=== PATIENT | female | born 1985 | race Caucasian/White ===

== ENCOUNTER 2019-10-21 10:48 | Outpatient (CLI) | payer OTHER, SELFPAY ==
[2019-10-21 11:43] LABS: Anion Gap 16.8 (5-19); Blood Urea Nitrogen 10 mg/dL (6-20); C Reactive Protein 20.6 mg/L (0.0-4.9); Calcium 10.2 mg/Dl (8.6-10.0); Carbon Dioxide 30 mmol/L (22-29); Chloride 91 mmol/L (98-107); Glomerular Filtration Rate 81.2 mL/min (90-130); Glucose 122 mg/dL (74-109); Sodium 135 mmol/L (136-145)
[2019-10-21 11:55] LABS: Potassium 2.8 mmol/L (3.5-5.1)
[2019-10-21 12:09] LABS: Erythrocyte Sedimentation Rate 46 mm/hr (0-15)
== END 2019-10-21 10:49 | disposition home or self-care (01) ==
PROVIDERS: Family Provider Family Medicine; PCP Family Medicine; Visit Provider Family Medicine
DX: E87.6 Hypokalemia (principal)
CPT/HCPCS: 36415; 80048; 84244; 85651; 86140

== ENCOUNTER 2019-10-21 10:55 | Outpatient (CLI) | payer OTHER, SELFPAY | END 2019-10-21 10:56 | disposition home or self-care (01) | LOC: LAB 10:58 | PROVIDERS: Family Provider Family Medicine; PCP Family Medicine; Visit Provider Internal Medicine | DX: M35.01 Sjogren syndrome with keratoconjunctivitis (principal) ==

== ENCOUNTER 2019-10-27 13:49 | Outpatient (CLI) | payer OTHER, SELFPAY ==
[2019-10-27 14:30] LABS: Anion Gap 16.2 (5-19); Blood Urea Nitrogen 14 mg/dL (6-20); Calcium 10.5 mg/Dl (8.6-10.0); Carbon Dioxide 32 mmol/L (22-29); Chloride 91 mmol/L (98-107); Glomerular Filtration Rate 81.2 mL/min (90-130); Glucose 169 mg/dL (74-109); Potassium 3.2 mmol/L (3.5-5.1); Sodium 136 mmol/L (136-145)
== END 2019-10-27 13:50 | disposition home or self-care (01) ==
LOC: LAB 13:53
PROVIDERS: Family Provider Family Medicine; PCP Family Medicine; Visit Provider Internal Medicine Cardiovascular Disease
DX: E87.6 Hypokalemia (principal)
CPT/HCPCS: 36415; 80048

== ENCOUNTER 2019-11-07 15:59 | Outpatient (CLI) | payer OTHER, BC, SELFPAY ==
[2019-11-07 17:05] LABS: Anion Gap 19.2 (5-19); Blood Urea Nitrogen 12 mg/dL (6-20); Calcium 9.6 mg/dL (8.5-10.5); Carbon Dioxide 27 mmol/L (22-29); Chloride 93 mmol/L (98-107); Glomerular Filtration Rate 81.2 mL/min (90-130); Glucose 133 mg/dL (74-109); Osmolality Calculated 280 mOsm/kg (285-295); Potassium 3.2 mmol/L (3.5-5.1); Sodium 136 mmol/L (136-145)
== END 2019-11-07 16:00 | disposition home or self-care (01) ==
LOC: LAB 16:04
PROVIDERS: Family Provider Family Medicine; PCP Family Medicine
DX: E87.6 Hypokalemia (principal)
CPT/HCPCS: 36415; 80048

== ENCOUNTER 2019-11-09 13:28 | Outpatient (CLI) | payer BC, OTHER, SELFPAY ==
[2019-11-09 14:03] LABS: Magnesium 2.3 mg/dL (1.7-2.3)
== END 2019-11-09 13:29 | disposition home or self-care (01) ==
PROVIDERS: Family Provider Family Medicine; PCP Family Medicine; Visit Provider Internal Medicine
DX: E87.6 Hypokalemia (principal)
CPT/HCPCS: 83735

== ENCOUNTER 2019-11-26 10:48 | Outpatient (CLI) | payer BC, SELFPAY ==
[2019-11-26 11:19] LABS: Anion Gap 16.9 (5-19); Blood Urea Nitrogen 9 mg/dL (6-20); Calcium 9.6 mg/dL (8.5-10.5); Carbon Dioxide 31 mmol/L (22-29); Chloride 92 mmol/L (98-107); Glomerular Filtration Rate 81.2 mL/min (90-130); Glucose 117 mg/dL (65-115); Osmolality Calculated 281 mOsm/kg (285-295); Potassium 2.9 mmol/L (3.5-5.1); Sodium 137 mmol/L (136-145)
== END 2019-11-26 10:49 | disposition home or self-care (01) ==
LOC: LAB 10:53
PROVIDERS: Family Provider Family Medicine; PCP Family Medicine; Visit Provider Internal Medicine Cardiovascular Disease
DX: E87.6 Hypokalemia (principal)
CPT/HCPCS: 36415; 80048

== ENCOUNTER 2019-12-07 13:27 | Outpatient (CLI) | payer BC, SELFPAY ==
[2019-12-07 14:03] LABS: Anion Gap 16.2 (5-19); Blood Urea Nitrogen 11 mg/dL (6-20); Calcium 10.2 mg/dL (8.5-10.5); Carbon Dioxide 28 mmol/L (22-29); Chloride 95 mmol/L (98-107); Glomerular Filtration Rate 70.8 mL/min (90-130); Glucose 132 mg/dL (65-115); Osmolality Calculated 280 mOsm/kg (285-295); Potassium 3.2 mmol/L (3.5-5.1); Sodium 136 mmol/L (136-145)
== END 2019-12-07 13:28 | disposition home or self-care (01) ==
PROVIDERS: Family Provider Family Medicine; PCP Family Medicine; Visit Provider Internal Medicine
DX: E87.6 Hypokalemia (principal)
CPT/HCPCS: 36415; 80048

== ENCOUNTER → 2019-12-15 13:20 | Outpatient (BNVA) | payer BC, SELFPAY | PROVIDERS: Family Provider Family Medicine; PCP Family Medicine; Visit Provider Internal Medicine | DX: E87.6 Hypokalemia (principal) | CPT/HCPCS: 84132 ==

== ENCOUNTER 2020-04-29 12:20 | Emergency (ER) | payer BC, SELFPAY ==
[2020-04-29] VITALS (8 sets, daily range): BP systolic 103–125; BP diastolic 52–77; PULSE 70–105; RESP 16–18; TEMP 36.7–37.2; O2SAT 96–100; BMI 34.0
--- NOTE | 2020-04-29 12:28 | XRR_ITS ---
PROCEDURE INFORMATION: Exam: XR Chest, 1 View Exam date and time: 04/29/2020 1:51 PM Age: 35 years old Clinical indication: Chest pain; Additional info: Cp TECHNIQUE: Imaging protocol: XR of the chest Views: 1 view. COMPARISON: CR Chest 1 [place] [id number] 06/20/2019 11:36 AM FINDINGS: Lungs: Unremarkable. No consolidation. Pleural space: Unremarkable. No pleural effusion. No pneumothorax. Heart/Mediastinum: Unremarkable. No cardiomegaly. Bones/joints: Unremarkable. XR/XR chest 1V portable [id number] IMPRESSION: No acute findings.
--- NOTE | 2020-04-29 12:29 | ECG_ITS ---
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 Measurements Intervals [place] Rate: 83 P: 19 [place]: 151 QRS: 3 QRSD: 93 T: 17 QT: 370 QTc: 437 Interpretive Statements SINUS RHYTHM MINIMAL VOLTAGE CRITERIA FOR LVH, CONSIDER NORMAL VARIANT [MEETS CRITERIA IN ONE OF: R(aVL), S(V1), R(V5), R(V5/V6)+S(V1)] NONSPECIFIC ST & T-WAVE ABNORMALITY Compared to ECG 08/19/2019 18:49:57 T-wave abnormality now present Myocardial infarct finding no longer present Electronically Signed On 04-29-2020 22:03:28 CDT by Valerie Campbell M.D. [id number] f
--- NOTE | 2020-04-29 12:30 | ED_ITS ---
HPI - Chest Pain General: Chief Complaint: Chest Pain Stated Complaint: cp Time Seen by Provider: 04/29/20 12:22 Source: patient and family History of Present Illness: HPI narrative: 35-year-old female with history of autoimmune disease, cardiomyopathy after and SVT presents with chest pain for 4 days. She states the pain is been there constantly but it was not getting better so she decided to come in. Complains of a heaviness in the center of her chest that is nonradiating and associated with shortness of breath nausea and vomiting. She states she has vomited multiple times but bowels are working normally. Denies any fever cough. Her dad was hospitalized and transferred to [place] yesterday with [place] and she has been around him. She tells me she has lost her sense of taste and smell and taste metallic in her mouth. nothing makes the pain better or worse Timing of current episode: constant Associated symptoms: Reports dyspnea, nausea and vomiting; Deny abdominal pain or fever(s) Review of Systems General: Reports: 10 or more systems reviewed and unremarkable except in HPI and below Const: Denies: fever(s) or chills Eyes: Denies: change in vision ENMT: Denies: throat pain Card: Reports: chest pain Resp: Reports: dyspnea; Denies: productive cough or non-productive cough GI: Reports: nausea and vomiting; Denies: abdominal pain or change in bowel habits : Denies: difficulty voiding Musc: Denies: muscle weakness Skin/Breast: Reports: rash Neuro: Denies: headache(s) Psych: Denies: hopelessness or suicidal ideation Endo: Denies: polyuria Garry/Lymph: Denies: easy bruising or easy bleeding All/Imm: Denies: urticaria PFSH ED PFSH: Medical History (Updated 04/29/20 @ 16:04 by Dejah Long MD) Cardiomyopathy Hypokalemia SVT (supraventricular tachycardia) Family History Mother Diabetes Brother Hypertension Father Hypertension Diabetes Heart problem Aneurysm Stroke Unknown Cancer Great Aunt X2; Breast Social History Smoking and tobacco status: never smoked Physical Exam Const: COMMON NORMALS: no acute distress, patient oriented x3, alert and well nourished HENMT: COMMON NORMALS: normocephalic and Normal external nose present HEAD & SCALP: normocephalic NOSE: Normal external nose present MOUTH: no trismus Eye: COMMON NORMALS: EOMs intact bilaterally and conjunctivae normal CONJUNCTIVA: Yes conjunctivae normal Neck/C-Spine: COMMON NORMALS: full ROM, no lymphadenopathy and supple CERVICAL SPINE: Yes cervical ROM normal Lymph: LYMPHATIC: no lymphadenopathy noted Resp: COMMON NORMALS: normal respiratory effort, No retractions, No use of accessory muscles and clear to auscultation bilaterally EFFORT & INSPECTION: Yes able to speak in complete sentences AUSCULTATION: clear to auscultation bilaterally Cardio: COMMON NORMALS: regular rate and regular rhythm RATE: regular rate RHYTHM: regular rhythm GI: COMMON NORMALS: Normal to inspection, nondistended, normoactive bowel sounds present, Soft to palpation, non-tender and no masses INSPECTION: Yes normal to inspection AUSCULTATION: Yes normoactive bowel sounds PALPATION: Yes Soft to palpation, No Guarding due to palpation present (GI) and No Rigid due to palpation Back/Pelvis: OTHER: Normal range of motion Extremity: GENERAL: Yes normal exam except as noted Neuro: COMMON NORMALS: patient oriented x3 and CN's II-XII intact bilaterally SENSORIUM/ORIENTATION: Yes alert SPEECH: speech normal Psych: COMMON NORMALS: mental status grossly normal Skin: COMMON NORMALS: no rashes or lesions noted GENERAL SKIN EXAM: no rashes or lesions noted Course Vital Signs: Vital signs: Vital Signs Temperature 98.1 F 04/29/20 12:32 Pulse Rate 74 04/29/20 16:04 Respiratory Rate 16 04/29/20 16:04 Blood Pressure 103/52 04/29/20 16:04 Pulse Oximetry 99 04/29/20 16:04 MDM - Chest Pain MDM Narrative: Medical decision making narrative: First and second troponin both less than 10. Nitro did not help patient's pain and bottomed her blood pressure out. Gave her 15 mg of Toradol IV with no change in her pain. Went over her test results and explained that she was not having a heart attack and did not necessarily warrant any admission to the hospital. She tells me that she is really worried about having COVID with her autoimmune disease because her father is COVID positive in the hospital in [place]. She was swabbed here in the ER but that test will not come back until tomorrow and I further explained that even if that test is negative since she is been in contact with her father she could still become positive at a later time. I did talk with the hospitalist who asked me to relay to the patient that she could admit her for observation status but she likely would be on the hook for the bill because most insurance companies are pain for observation when criteria is not met. I did go back and tell the patient that I had this conversation with hospitalist and patient elects to go home at this time. I asked the patient to let me know before she left if she changed her mind. Her and her mother both thanked me. Lab Data: Attestation: I reviewed the patient's lab results. Labs: Lab Results 04/29/20 04/29/20 04/29/20 Range/Units 12:55 12:55 12:55 WBC 3.7 L (4.0-10.0) 10^3/ uL RBC 4.92 (4.1-5.3) 10^6/u L Hgb 12.7 (11.5-15.3) g/dL Hct 40.3 (37.0-47.0) % MCV 81.9 (81-99) fL MCH 25.8 L (28.0-34.0) pg MCHC 31.5 (30.0-36.0) g/dL RDW 16.1 H (12.1-15.1) % Plt Count 314 (130-400) 10^3/c mm MPV 10.0 (7.4-10.4) fL Neut % (Auto) 68.9 % Lymph % (Auto) 21.8 % [place] % (Auto) 8.4 % Eos % (Auto) 0.3 % Baso % (Auto) 0.3 % Neut # (Auto) 2.53 (1.8-7.7) 10^3/u L Lymph # (Auto) 0.8 (0.8-4.8) 10^3/u L [place] # (Auto) 0.3 (0.2-0.9) 10^3/u L Eos # (Auto) 0.0 (0.0-0.8) 10^3/u L Baso # (Auto) 0.0 (0.0-0.1) 10^3/u L Nucleated RBC % (a uto) 0 % Nucleated RBCs # 0.0 /100WBC D-Dimer 0.36 (0-0.59) ug/mIFE U Sodium 134 L (136-145) mmol/L Potassium 2.9 L (3.5-5.1) mmol/L Chloride 87 L (98-107) mmol/L Carbon Dioxide 29 (22-29) mmol/L Anion Gap 20.9 H (5-19) BUN 14 (6-20) mg/dL Creatinine 1.0 H (0.5-0.9) mg/dL GFR Calculation 62.4 L (90-130) mL/min Glucose 136 H (65-115) mg/dL Calculated Osmolal ity 276 L (285-295) mOsm/k g Calcium 9.3 (8.5-10.5) mg/dL Total Bilirubin 0.2 (0.15-1.2) mg/dL AST 18 (0-32) U/L ALT 8 (0-33) U/L Alkaline Phosphata se 77 (35-105) IU/L Troponin T Baselin e (0-10) ng/L Troponin T 120 Min [place] (0-10) ng/L Delta Troponin T (0-10) ABS# NT-Pro-B Natriuret Pep 20 (0-125) pg/mL Total Protein 8.2 (6.6-8.7) g/dL Albumin 4.8 (3.5-5.2) g/dL Globulin 3.4 (1.3-4.6) g/dL TSH (0.27-4.20) uIU/ mL Digoxin (0.6-1.2) ng/mL 04/29/20 04/29/20 04/29/20 Range/Units 12:55 12:55 14:36 WBC (4.0-10.0) 10^3/ uL RBC (4.1-5.3) 10^6/u L Hgb (11.5-15.3) g/dL Hct (37.0-47.0) % MCV (81-99) fL MCH (28.0-34.0) pg MCHC (30.0-36.0) g/dL RDW (12.1-15.1) % Plt Count (130-400) 10^3/c mm MPV (7.4-10.4) fL Neut % (Auto) % Lymph % (Auto) % [place] % (Auto) % Eos % (Auto) % Baso % (Auto) % Neut # (Auto) (1.8-7.7) 10^3/u L Lymph # (Auto) (0.8-4.8) 10^3/u L [place] # (Auto) (0.2-0.9) 10^3/u L Eos # (Auto) (0.0-0.8) 10^3/u L Baso # (Auto) (0.0-0.1) 10^3/u L Nucleated RBC % (a uto) % Nucleated RBCs # /100WBC D-Dimer (0-0.59) ug/mIFE U Sodium (136-145) mmol/L Potassium (3.5-5.1) mmol/L Chloride (98-107) mmol/L Carbon Dioxide (22-29) mmol/L Anion Gap (5-19) BUN (6-20) mg/dL Creatinine (0.5-0.9) mg/dL GFR Calculation (90-130) mL/min Glucose (65-115) mg/dL Calculated Osmolal ity (285-295) mOsm/k g Calcium (8.5-10.5) mg/dL Total Bilirubin (0.15-1.2) mg/dL AST (0-32) U/L ALT (0-33) U/L Alkaline Phosphata se (35-105) IU/L Troponin T Baselin e 6 (0-10) ng/L Troponin T 120 Min [place] 7.06 (0-10) ng/L Delta Troponin T 1.06 (0-10) ABS# NT-Pro-B Natriuret Pep (0-125) pg/mL Total Protein (6.6-8.7) g/dL Albumin (3.5-5.2) g/dL Globulin (1.3-4.6) g/dL TSH 1.20 (0.27-4.20) uIU/ mL Digoxin 0.7 (0.6-1.2) ng/mL Imaging Data^: CXR: My impression: NAD EKG Data^: EKG 1: Attestation: I personally reviewed and interpreted this EKG as follows: EKG interpretation date: 04/29/20 EKG interpretation time: 12:39 Interpretation: Sinus rhythm rate [address] changes with baseline artifact and wandering baseline. Compared to EKG 08/19/2019 essentially unchanged. Discharge Plan Discharge Patient Disposition: Home, Self-Care Clinical Impression: H/O Sjogren's disease Chest pain Qualifiers: Chest pain type: unspecified Qualified Code(s): R07.9 - Chest pain, unspecified Condition: Stable Prescriptions: No Action cholecalciferol (vitamin D3) 50 mcg (2,000 unit) capsule 50 mcg PO DAILY RF: 0 spironolactone 25 mg tablet 100 mg PO BID RF: 0 duloxetine [Cymbalta] 30 mg capsule,delayed release(DR/EC) 60 mg PO DAILY RF: 0 clobetasol 0.025 % cream 1 applic TOPICAL BID PRN (Reason: unknown) RF: 0 tramadol 50 mg tablet 50 mg PO Q6H PRN (Reason: Pain) RF: 0 sulfasalazine 500 mg tablet 1,500 mg PO BID RF: 0 magnesium oxide 400 mg magnesium tablet 400 mg PO DAILY RF: 0 folic acid 400 mcg tablet 800 mcg PO DAILY RF: 0 omeprazole 20 mg capsule,delayed release(DR/EC) 20 mg PO DAILY RF: 0 citalopram [Celexa] 40 mg tablet 40 mg PO DAILY RF: 0 levothyroxine 75 mcg capsule 75 mcg PO DAILY RF: 0 sumatriptan succinate [Imitrex] 100 mg tablet 100 mg PO DIRECTED PRN (Reason: Headache) RF: 0 aspirin [Adult Low Dose Aspirin] 81 mg tablet,delayed release (DR/EC) 81 mg PO DAILY RF: 0 carisoprodol [Soma] 350 mg tablet 350 mg PO TID RF: 0 cetirizine 10 mg capsule 10 mg PO DAILY RF: 0 melatonin 10 mg capsule 15 mg PO BEDTIME PRN (Reason: Sleep) RF: 0 alprazolam [Xanax] 0.25 mg tablet 0.25 mg PO BID PRN (Reason: unknown) RF: 0 indomethacin 50 mg capsule 50 mg PO PRN PRN (Reason: unknown) RF: 0 digoxin 125 mcg (0.125 mg) tablet 125 mcg PO DAILY 90 Days Qty: 90 RF: 3 furosemide 40 mg tablet 40 mg PO BID PRN (Reason: weight gain) 30 Days Qty: 90 RF: 6 metolazone 2.5 mg Tablet 2.5 mg PO BID PRN (Reason: Edema) RF: 0 pilocarpine HCl 5 mg tablet 5 mg PO TID PRN (Reason: unknown) RF: 0 hydroxychloroquine 200 mg tablet 200 mg PO DAILY RF: 0 metoprolol succinate 25 mg tablet extended release 24 hr See Rx Instructions .ROUTE .COMPLEX RF: 0 Referrals: Nabor Nicholson MD [Primary Care Provider] - Patient Instructions: Chest Pain (ED) Activity Restrictions/Additional Instructions: return to the ER immediately if worse or you think you have any emergent or concerning symptoms we are happy to reevaluate you. Coding Level of Care Code ED Strategic Partnership Representative for Gokul Fwd Exam Comprehensive
[2020-04-29] MEDS: nitroglycerin 0.4 mg sublingual Tablet SUBLINGUAL (12:55)
[2020-04-29] MEDS: sodium chloride 0.9% 1,000 ML 999 ML IV (12:58)
[2020-04-29] MEDS: aspirin 81 mg Chew Tablet 324 MG PO (12:58)
[2020-04-29] MEDS: ondansetron 2 mg/ML SDV 2 mL 4 MG IVP (12:58)
[2020-04-29 13:04] LABS: Basophils % 0.3 %; Eosinophils % 0.3 %; Hematocrit 40.3 % (37.0-47.0); Hemoglobin 12.7 g/dL (11.5-15.3); Lymphocytes # 0.8 10^3/uL (0.8-4.8); Lymphocytes % 21.8 %; Mean Corpuscular HGB Conc 31.5 g/dL (30.0-36.0); Mean Corpuscular Hemoglobin 25.8 pg (28.0-34.0); Mean Corpuscular Volume 81.9 fL (81-99); Monocytes # 0.3 10^3/uL (0.2-0.9); Monocytes % 8.4 %; Neutrophils # 2.53 10^3/uL (1.8-7.7); Neutrophils % 68.9 %; Nucleated Red Blood Cells % 0 %; Platelet Count 314 10^3/cmm (130-400); Red Blood Count 4.92 10^6/uL (4.1-5.3); Red Cell Distribution Width 16.1 % (12.1-15.1); White Blood Count 3.7 10^3/uL (4.0-10.0)
[2020-04-29 13:16] LABS: D Dimer 0.36 ug/mIFEU (0-0.59)
[2020-04-29] MEDS: acetaminophen 325 mg Tablet 650 MG PO (13:23)
[2020-04-29 13:25] LABS: Troponin(5th) Baseline 6 ng/L (0-10)
[2020-04-29 13:32] LABS: Alanine Aminotransferase 8 U/L (0-33); Albumin Level 4.8 g/dL (3.5-5.2); Alkaline Phosphatase 77 IU/L (35-105); Anion Gap 20.9 (5-19); Aspartate Amino Transferase 18 U/L (0-32); Blood Urea Nitrogen 14 mg/dL (6-20); Calcium 9.3 mg/dL (8.5-10.5); Carbon Dioxide 29 mmol/L (22-29); Chloride 87 mmol/L (98-107); Globulin 3.4 g/dL (1.3-4.6); Glomerular Filtration Rate 62.4 mL/min (90-130); Glucose 136 mg/dL (65-115); NT Pro B Type Natriuretic Pept 20 pg/mL (0-125); Osmolality Calculated 276 mOsm/kg (285-295); Sodium 134 mmol/L (136-145); Total Bilirubin 0.2 mg/dL (0.15-1.2); Total Protein 8.2 g/dL (6.6-8.7)
[2020-04-29 13:41] LABS: Potassium 2.9 mmol/L (3.5-5.1)
[2020-04-29] MEDS: potassium chloride ER 10 mEq Tablet 40 MEQ PO (13:49)
[2020-04-29] MEDS: ketorolac 30 mg/mL INJ 15 MG IVP (14:01)
[2020-04-29 14:21] LABS: Digoxin 0.7 ng/mL (0.6-1.2)
--- NOTE | 2020-04-29 14:29 | ECG_ITS ---
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 Measurements Intervals [place] Rate: 91 P: 54 SD: 134 QRS: -3 QRSD: 96 T: 17 QT: 359 QTc: 443 Interpretive Statements SINUS RHYTHM MINIMAL VOLTAGE CRITERIA FOR LVH, CONSIDER NORMAL VARIANT [MEETS CRITERIA IN ONE OF: R(aVL), S(V1), R(V5), R(V5/V6)+S(V1)] NONSPECIFIC ST & T-WAVE ABNORMALITY Compared to ECG 04/29/2020 12:46:47 No significant changes Electronically Signed On 04-29-2020 22:06:25 CDT by Valerie Campbell M.D. [email or web address] [email or web address].[email or web address]/store/[id number]
[2020-04-29 15:24] LABS: Troponin 5 2HR 7.06 ng/L (0-10); Troponin 5 2HR Delta 1.06 ABS# (0-10)
[2020-04-30 15:46] LABS: Coronavirus Lab Test PTC DETECTED
== END 2020-04-29 16:23 | disposition home or self-care (01) ==
PROVIDERS: Emergency Provider Emergency Medicine; PCP Family Medicine
DX: M35.00 Sjogren syndrome, unspecified (principal); R07.9 Chest pain, unspecified; Z79.82 Long term (current) use of aspirin; U07.1 COVID-19
CPT/HCPCS: 12345; 71045; 80053; 80162; 83880; 84443; 84484; 85025; 85378; 87635; 93005; 96361; 96374; 96375; 99283; 99284; J1885; J2405; J7030

== ENCOUNTER 2020-10-17 15:32 | Outpatient (CLI) | payer OTHER, SELFPAY ==
--- NOTE | 2020-10-17 15:45 | USCV_ITS ---
Esme Reid Age: 35 Gender: F : 1985 Exam Date: 10/17/2020 16:02 Ordering Phys: Valerie Campbell MD ([email or web address]) Technologist: Maynor Franco Exam Location: [facility] [place] Indication: peripartum cardiomyopathy BP: 147 / 88 HR: 81 Rhythm: Sinus Technical Quality: Good MEASUREMENTS (Male / Female) Normal Values 2D ECHO LV Diastolic Diameter PLAX 3.9 cm 4.2 - 5.9 / 3.9 - 5.3 cm LV Systolic Diameter PLAX 2.9 cm IVS Diastolic Thickness 0.7 cm 0.6 - 1.0 / 0.6 - 0.9 cm IVS Systolic Thickness 1.3 cm LVPW Diastolic Thickness 1.2 cm 0.6 - 1.0 / 0.6 - 0.9 cm LVPW Systolic Thickness 1.6 cm LVOT Diameter 2.0 cm LV Ejection Fraction 2D Teich 53.7 % LV Ejection Fraction MOD 2C 57.9 % LV Ejection Fraction 2C AL 56.1 % LA Diameter 3.1 cm LA Width 3.3 cm LA Height 4.0 cm RA Width 2.5 cm RA Height 3.7 cm Aorta at Sinotubular Diameter 2.5 cm M-MODE LV Diastolic Diameter MM 4.2 cm 4.2 - 5.9 / 3.9 - 5.3 cm LV Systolic Diameter MM 2.4 cm LV Ejection Fraction MM Teich 73.6 % IVS Diastolic Thickness MM 0.9 cm 0.6 - 1.0 / 0.6 - 0.9 cm IVS Systolic Thickness MM 1.1 cm LVPW Diastolic Thickness MM 1.1 cm 0.6 - 1.0 / 0.6 - 0.9 cm LVPW Systolic Thickness MM 1.8 cm Aortic Annulus Diameter 2.7 cm LA Ao Ratio MM 1.1 MV E Point Septal Separation 1.8 cm DOPPLER AV Peak Velocity 125.0 cm/s LVOT Peak Velocity 118.0 cm/s AV Area Cont Eq vti 2.8 cm squared AV Area Cont Eq pk 2.9 cm squared MV Area PHT 3.5 cm squared Mitral E to A Ratio 0.9 MV E' Velocity 52.5 cm/s Mitral E to MV E' Ratio 6.8 Mitral E to LV E' Lateral Ratio 6.5 Mitral E to LV E' Septal Ratio 7.1 TR Peak Velocity 104.0 cm/s TR Peak Gradient 4.3 mmHg TV Peak E Velocity 105.7 cm/s Right Atrial Pressure 3.0 mmHg Pulmonary Artery Systolic Pressu 7.3 mmHg PV Peak Velocity 67.0 cm/s RV Acceleration Time 0.1 s RV Ejection Time 0.3 s RV AcT/ET 0.4 FINDINGS Left Ventricle Normal left ventricular cavity size. Normal left ventricular systolic function. No regional wall motion abnormalities. Left ventricular ejection fraction is estimated at 65 %. Normal diastolic function. Right Ventricle The right ventricle is normal in size and function. Right Atrium The right atrium is normal in size. Left Atrium The left atrium is normal in size. Mitral Valve Structurally normal mitral valve without significant stenosis or prolapse. There is no mitral regurgitation. Aortic Valve Structurally normal aortic valve without significant sclerosis or stenosis. There is no aortic regurgitation. Tricuspid Valve Structurally normal tricuspid valve without significant stenosis or regurgitation. Pulmonary artery systolic pressure is normal. Pulmonic Valve Structurally normal pulmonic valve without significant stenosis. There is no pulmonic regurgitation. Pericardium Normal pericardium without effusion. Aorta Normal ascending aorta dimension. CONCLUSIONS 1-Normal left ventricular cavity size. Normal left ventricular systolic function. No regional wall motion abnormalities. Left ventricular ejection fraction is estimated at 65 %. Normal diastolic function. 2-There is no pericardial effusion. 3-No significant valve abnormalities. 4-Pulmonary artery systolic pressure is within normal limits. 5-Right atrial pressure is around 5 mm of mercury. 6-There are no prior echocardiogram studies to compare. Valerie Campbell MD (Electronically Signed) Final Date: 17 October 2020 19:10 S
== END 2020-10-17 15:33 | disposition home or self-care (01) ==
PROVIDERS: PCP Family Medicine; Visit Provider Internal Medicine Cardiovascular Disease
DX: O90.3 Peripartum cardiomyopathy (principal)
CPT/HCPCS: 87635; 93306

== ENCOUNTER 2020-10-22 09:09 | Outpatient (CLI) | payer OTHER, SELFPAY ==
--- NOTE | 2020-10-22 14:18 | PFTS_ITS ---
Date of Study:10/22/20 Date of Dictation: MECHANICS: Forced vital capacity (FVC) is normal. Forced expiratory volume in one second (FEV1) is normal. FEV1/FVC is normal. FLOW VOLUME LOOP: Normal. LUNG VOLUMES: Total lung capacity (TLC) is normal. Residual volume (RV) is increased. DIFFUSING CAPACITY FOR CARBON MONOXIDE: Normal. INTERPRETATION: The prebronchodilator spirometry is consistent with moderate obstruction. The postbronchodilator spirometry is completely normal. There is a significant postbronchodilator response. Lung volumes are consistent with mild air trapping. Gas exchange (DLCO) is normal. The pulmonary function test is very suggestive of reversible obstructive airways disease. MTDD
== END 2020-10-22 09:10 | disposition home or self-care (01) ==
LOC: RT 09:19
PROVIDERS: PCP Family Medicine; Visit Provider Internal Medicine
DX: I50.9 Heart failure, unspecified (principal); R42 Dizziness and giddiness; R55 Syncope and collapse
CPT/HCPCS: 94060; 94726; 94729; J7611

== ENCOUNTER → 2021-01-01 09:28 | Outpatient (BNVA) | payer OTHER, SELFPAY | PROVIDERS: PCP Family Medicine; Referring Provider Family Medicine; Visit Provider Specialist | DX: G56.03 Carpal tunnel syndrome, bilateral upper limbs (principal); R20.0 Anesthesia of skin; R20.2 Paresthesia of skin | CPT/HCPCS: 95910 ==

== ENCOUNTER 2021-01-23 15:03 | Outpatient (CLI) | payer OTHER, SELFPAY ==
--- NOTE | 2021-01-23 15:30 | MM_ITS ---
WS: [id number] SCREENING DIGITAL MAMMOGRAM WITH CAD HISTORY: M32.9 - Systemic lupus erythematosus, unspecified COMPARISON: None available. Bilateral CC and MLO views submitted. Computer aided detection analyzed. Breast composition: There are scattered areas of fibroglandular density. No suspicious masses, microc alcifications or architectural distortion. MM/[place] [id number] IMPRESSION: BI-RADS: 1-Negative FOLLOW UP: 1 Year Follow-up
== END 2021-01-23 15:04 | disposition home or self-care (01) ==
LOC: RADSHAW 15:08
PROVIDERS: PCP Family Medicine; Visit Provider Obstetrics & Gynecology
DX: Z12.31 Encounter for screening mammogram for malignant neoplasm of breast (principal)
CPT/HCPCS: 77067

== ENCOUNTER 2021-01-29 11:01 | Outpatient (CLI) | payer OTHER, SELFPAY ==
--- NOTE | 2021-01-29 11:00 | US_ITS ---
WS: [id number] ULTRASOUND PELVIS TECHNIQUE: Transvaginal. CLINICAL INFORMATION: N93.9 - Abnormal uterine and vaginal bleeding, unspecified LMP: 01/21 : No. COMPARISON: None. FINDINGS: Uterus Orientation: Anteverted. Size: 6.1 x 3.1 x 4.5 Masses: None. Cervix: Normal. Endometrium: Normal. Endometrium thickness: 1.3 cm. Adnexa: Simple right ovarian cyst measuring 1.7 x 1.0 CM. Left ovarian cyst with some internal debris measuring 2.7 x 1.4 cm consistent with hemorrhagic cyst. Right ovary size: 2.8 x 2.9 x 2.3 cm. Left ovary size: 3.7 x 1.4 x 2.7 cm. Free fluid: Trace Other findings: None. US/US transvaginal [id number] IMPRESSION: 1. Normal uterus with thickened endometrium measuring 13 mm normal for patient this age. 2. Simple right ovarian cyst measuring 1.7 x 1.0 CM. 3. Left ovarian cyst with some internal debris measuring 2.7 x 1.4 cm consiste nt with hemorrhagic cyst. 4. Trace free fluid in the cul-de-sac.
== END 2021-01-29 11:02 | disposition home or self-care (01) ==
PROVIDERS: PCP Family Medicine; Visit Provider Obstetrics & Gynecology
DX: N93.9 Abnormal uterine and vaginal bleeding, unspecified (principal)
CPT/HCPCS: 76830

== ENCOUNTER 2021-02-14 13:44 | Observation (INO) | payer OTHER, SELFPAY ==
[2021-02-06 12:19] VITALS: BMI 30.9
--- NOTE | 2021-02-06 12:40 | P.ANESASSM_ITS ---
Pre-Anesthetic Assessment Pre-Anesthetic Assessment: Height/Weight: Height 1.6 m Weight 79.379 kg Preop Diagnosis: Abnormal bleeding Proposed Procedure: Operation Date: 02/14/21 13:00 Proposed Procedures p Laparoscopic Assist Vaginal Hysterectomy alexis salpingectomy [id number] N93.9(Not Applicable) - Papito Lundberg MD Familial anesthetic complications: None Social: Social History: No alcohol and No tobacco Exam: Pre-Anes Outpt Exam: alert, oriented x 3, clear to auscultation bilaterally and regular rate & rhythm Airway: Cervical ROM: WNL MP: 2 Dentition: Chipped Pulmonary: Pulmonary: Asthma CV/HEM: CV/HEM: CHF (peripartum cardiomyopathy 2015 - Back to baseline now, but had an episode 3 years ago) and HTN Comments: no restriction on activity SVT - digoxin GI: GI: GERD Metabolic: Metabolic: Thyroid Musc/skel: Musc/skel: Fibromyalgia Comments: Lupus + sjogren's syndrome Anesthetic Plan: ASA status: 3 Anesthesia: General Risk of > 500 ml blood loss (7ml/kg in children): No PFSH Anesthesia PFSH: Medical History (Updated 01/09/21 @ 07:45 by Papito Lundberg MD) Anxiety and depression Symptoms well controlled with medication. She follows up with her PMD and with. Is currently on Cymbalta and Celexa. Take Xanax as needed Asthma Diagnosed in 2020 and is taking medications. Follows up with asset protection detective Dr. Dyer Cardiomyopathy in 2014--is almost normal return of function and follows up with chief meteorologist Dr. Campbell Gout Diagnosed in 2018 and was taking medication however this has improved and she very rarely has to take medication. Hypothyroidism Diagnosed in 2014 and controlled on medication managed by her primary care provider. No pertinent past medical history Denies diabetes, seizures, DVT/PE PCP: Dr. Nicholson Sjogren's disease Managed by rheumatology in [facility] group in [place]-Dr. Keane SVT (supraventricular tachycardia) Surgical History (Updated 01/09/21 @ 07:38 by Papito Lundberg MD) S/P wisdom tooth extraction Status post surgery x 2 1999 5-2006 had surgery in [place] on her salivary gland 09/2010----Salivary Gland flushed in [place] due to presence of stones Family History Mother Diabetes Rheumatoid arthritis Sjogren's disease Brother Hypertension Father Hypertension Diabetes Heart problem Aneurysm aortic Stroke Autoimmune disease Unknown Uterine cancer maternal great aunt, maternal second cousin Grandmother Heart problem maternal Family/Other Breast cancer maternal x 2, diagnosed at ages 30 and 50 Denies family history of Colon cancer Ovarian cancer Bleeding disorder Social History Smoking and tobacco status: never smoked Alcohol intake: never Counseling given: No Current occupational status: unemployed History of recent travel: No Female Reproductive History: Date of last menstrual period: 04/29/20 Data Anesthesia Cardiac Studies: No Data to Display
[2021-02-14] VITALS (17 sets, daily range): BP systolic 92–119; BP diastolic 51–82; PULSE 60–85; RESP 15–20; TEMP 36.4–36.8; O2SAT 94–100
--- NOTE | 2021-02-14 08:51 | P.ANESUD_ITS ---
Pre-Anesthetic Update Pre-Anesthetic Assessment: Date of Surgery/Procedure: 02/14/21 Preop Olga gnosis: Abnormal uterine bleeding Proposed Procedure: Operation Date: 02/14/21 09:50 Proposed Procedures p Laparoscopic Assist Vaginal Hysterectomy alexis salpingectomy [id number] N93.9(Not Applicable) - Papito Lundberg MD Any changes to Pre-Anesthetic Assessment?: No Last Intake: Intake Last Liquid Date 02/13/21 Last Liquid Time 23:00 Last Solid Date 02/13/21 Last Solid Time 18:00 Vitals: Temperature 97.9 F 02/14/21 08:31 Temperature Source Temporal Artery S can 02/14/21 08:31 Pulse Rate 67 02/14/21 08:31 Pulse Rhythm 02/14/21 08:31 Pulse Strength 3+ Normal 02/14/21 08:31 Respiratory Rate 18 02/14/21 08:31 Blood Pressure 107/82 02/14/21 08:31 Blood Pressure Cristina n 90 02/14/21 08:31 Pulse Oximetry 97 02/14/21 08:31 Oxygen Delivery Me thod 02/14/21 08:31 Exam: Pre-Anes Outpt Exam: alert, oriented x 3, clear to auscultation bilaterally and regular rate & rhythm Cardiac Studies: No Data to Display
[2021-02-14] MEDS: sodium chloride 0.9% 1,000 ML 30 ML IV (09:13)
[2021-02-14 09:34] LABS: OR HCG Qualitative Urine Negative (Negative)
--- NOTE | 2021-02-14 09:45 | W.PM.OPSUD ---
Surgery/Procedure H&P Update DATE OF PROCEDURE: February 14, 2021 DATE H&P PERFORMED: 02/04/21 H&P UPDATE INFORMATION: I have reviewed H&P completed within last 30 days, I have examined patient prior to procedure, No changes to prior documentation and H&P is in [facility] [place] on date indicated PREOP DIAGNOSIS: Abnormal uterine bleeding PLANNED PROCEDURE: Operation Date: 02/14/21 09:50 Proposed Procedures p Laparoscopic Assist Vaginal Hysterectomy alexis salpingectomy [id number] N93.9(Not Applicable) - Papito Lundberg MD
[2021-02-14 09:56] LABS: Basophils % 0.4 %; Eosinophils # 0.1 10^3/uL (0.0-0.8); Eosinophils % 1.6 %; Hematocrit 36.9 % (37.0-47.0); Hemoglobin 11.4 g/dL (11.5-15.3); Lymphocytes # 1.1 10^3/uL (0.8-4.8); Lymphocytes % 21.8 %; Mean Corpuscular HGB Conc 30.9 g/dL (30.0-36.0); Mean Corpuscular Hemoglobin 26.6 pg (28.0-34.0); Mean Platelet Volume 10.4 fL (7.4-10.4); Monocytes # 0.6 10^3/uL (0.2-0.9); Monocytes % 11.7 %; Neutrophils # 3.18 10^3/uL (1.8-7.7); Neutrophils % 64.1 %; Nucleated Red Blood Cells % 0 %; Platelet Count 240 10^3/cmm (130-400); Red Blood Count 4.29 10^6/uL (4.1-5.3); Red Cell Distribution Width 19.8 % (12.1-15.1)
[2021-02-14 10:11] LABS: Alanine Aminotransferase 9 U/L (0-33); Albumin Level 4.4 g/dL (3.5-5.2); Alkaline Phosphatase 56 IU/L (35-105); Anion Gap 12.4 (5-19); Aspartate Amino Transferase 16 U/L (0-32); Blood Urea Nitrogen 11 mg/dL (6-20); Calcium 9.1 mg/dL (8.5-10.5); Carbon Dioxide 32 mmol/L (22-29); Chloride 97 mmol/L (98-107); Globulin 2.7 g/dL (1.3-4.6); Glomerular Filtration Rate 80.7 mL/min (90-130); Glucose 83 mg/dL (65-115); Osmolality Calculated 287 mOsm/kg (285-295); Sodium 139 mmol/L (136-145); Total Bilirubin 0.2 mg/dL (0.15-1.2); Total Protein 7.1 g/dL (6.6-8.7)
[2021-02-14 10:39] LABS: Potassium 2.4 mmol/L (3.5-5.1)
[2021-02-14] MEDS: vasopressin 20 unit/mL INJ INJECTION (12:20)
--- NOTE | 2021-02-14 13:43 | P.OP_ITS ---
Operative Report Date of procedure: February 14, 2021 OPERATIVE REPORT Date of surgery: 02/14/2021 Date of dictation: 02/14/2021 Preoperative diagnosis: Abnormal uterine bleeding Postoperative diagnosis/findings: 8-week size retroverted uterus, on laparoscopy normal tubes bilaterally, normal ovaries bilaterally with the right ovary having functional cysts, normal size uterus, and cystoscopy normal bladder without any lesions suture or defects, bilateral ureteral jets x3 Procedure done: Laparoscopic assisted vaginal hysterectomy, bilateral salpingectomy, cystoscopy Specimens removed/disposition of specimens: Uterus, cervix, bilateral fallopian tubes Surgeon: Dr. Papito Greco botany laboratory assistant: Maday Taveras Anesthesia: General endotracheal tube anesthesia Estimated blood loss: 150 ml Intravenous fluids: 600 mL of LR Urine output: 400 mL of clear urine at the end of procedure. Medications: As per anesthesia records Complications: None, patient was extubated and taken to the recovery room in a stable condition. PROCEDURE: After consents were obtained, she was taken to the operating room where she was placed under general endotracheal tube anesthesia without any difficulty. She was placed supine on the table in lithotomy position. Her legs were placed in stirrups and care was taken to avoid pressure points. Exam under anesthesia revealed findings noted above. She was then prepped and draped in usual sterile fashion. Weighted speculum and anterior wall retractors were placed in the vagina, cervix visualized and grasped with a tenaculum. ZUMI uterine manipulator was placed into the uterus without any difficulty. Reyes Catheter was placed, instruments were removed from the vagina and the legs were lowered. Attention was turned towards the abdomen where half percent Marcaine with epinephrine was injected in to her umbilicus. A 10 mm skin incision was made and a 10 mm port was placed through the umbilicus using an Workman technique---fascia was exposed elevated up with Geeta clamps and sharply incised-peritoneum was entered digitally/bluntly and no adhesions were noted around site of entry. Workman trocar was attached to the fascia with 0 Vicryl. Once intra-abdominal entry was confirmed gas was turned on and intra-abdominal opening pressure was 2. The abdomen is insufflated until the pressure was 13. Survey of the abdomen findings noted above-no gross intra-abdominal pathology other than a single filmy adhesion of the colon onto the left upper quadrant. This was not disturbed. No other gross abnormality were identified. Two 5 mm trocar was placed into the right and left lower quadrant under direct visualization after injecting Marcaine. A 5 mm Voyant was introduced into the abdomen and the left ovarian ligament was clamped, cauterized x3 and then cut. No bleeding was noted. The Voyant was used clamp cauterize and then cut the broad ligament under the fallopian tube and proceeding inferiorly just lateral to the uterus. The round ligament was also clamped, cauterized and cut. In this way the left fallopian tube and left side of the uterus was from the parametria. This was continued to the level just above the cervix. The same procedure was repeated on the right side and using the Voyant -the right ovarian ligament, fallopian tube and round ligament were grasped, cauterized and cut. Good hemostasis was noted.The right-side of the uterus was thus freed from the parametria in a similar fashion. The ureters were visualized bilaterally well away from site of surgery. Next the anterior bladder flap was created and the bladder was pushed down. The uterine artery on both sides were visualized, clamped and cauterized. Survey of surgery sites showed hemostasis at the IP ligament bilaterally. At this point all instruments were taken out of the abdomen, gas was turned off, abdomen was covered with a sterile drape and attention was turned towards the vagina. Patient's legs were raised, weighted speculum placed and cervix was grasped on the anterior and posterior lips with single-toothed tenaculum. 4 Units of Pitressin diluted in 10 mL of saline was injected around the cervix for hydrodissection on all sides. A scalpel was used to make an incision starting posteriorly and then extending anteriorly around the cervix. Patel scissors was then used to separate the overlying tissue from the cervix. The overlying tissue was also pushed back bluntly using a 4 x 4 gauze. Attention was turned posteriorly where pickups with teeth and Metzenbaum scissors was used to grasp the peritoneum and peritoneal cavity was entered. This peritoneal incision was extended laterally using the Metzenbaum scissors. A long weighted speculum was placed intraperitoneally thus protecting the rectum. Jessie[place] clamps were used first on the right and then the left to clamp and then cut the paracervical tissue. Then we clamped, cut and sutured both right and left uterosacral ligaments with a Jessie clamp. This process was repeated again proceeding up the cervix. The bladder was held up, peritoneum was identified and intraperitoneal entry anteriorly was made. A vaginal retractor was placed into the peritoneum thus protecting the bladder from site of surgery. Care was taken to stay medial and to avoid the bladder. The next bite that was placed clamped and then cut the already cauterized uterine artery on the right and then on the left side. These pedicles were were tied and the stitches were cut. Good hemostasis was achieved. With this, the uterus, bilateral tubes and ovaries, was freed, taken out and sent to pathology. The pedicles in the pelvis was visualized and good hemostasis was noted. The posterior vaginal cuff was noted to be bleeding and was oversewn , attaching the peritoneum to the vaginal cuff with 0 Vicryl in a continuous interlocking fashion. Good hemostasis was achieved. Cystoscopy was performed with a 70? cystoscope and bilateral ureteral jets were visualized x 3 as well as no suture , lesion or defect was noted in the bladder wall or urethra. Cystoscope was removed, bladder drained and Reyes catheter was replaced. The angles of the vaginal cuff were grasped with Allis clamps and the angles were held in place. 0 Vicryl was used to close the vaginal cuff in a horizontal fashion using interrupted aegodp-op-kwstg sutures. The vaginal cuff was closed and no defects were noted attention was turned to the Vicryl sutures holding the uterosacral ligaments. The sutures were right and left uterosacral ligaments were tied together thus suspending the apex of the vagina. Good support was noted. Attention was turned towards the abdomen at this time and patient's legs were lowered. Abdomen was insufflated to a pressure of 13 and the camera was placed in the abdomen. Sites of surgery were visualized and were noted to be hemostatic. The vaginal cuff was intact and no bowel or omentum was noted to be involved with the vaginal cuff suture line. Surgicel was placed over the vaginal cuff. Good hemostasis was noted. All instruments removed from the abdomen and the abdomen was desufflated. Trochars were removed with the blunt probe in place. The fascia on the umbilicus was closed with 0 Vicryl on a UR needle and good approximation was obtained. The skin incision on all 3 ports was closed with 4-0 Monocryl in a subcuticular fashion. Good reapproximation and hemostasis was noted. Marcaine was injected on the port sites. The incisions were dressed with Steri-Strips, Telfa and Tegaderm. 1 inch vaginal packing with lubrication was placed into the vagina. A Reyes catheter was kept in place. The patient was extubated without any difficulty and taken to the recovery room in a stable condition. This documentation was created by [email or web address] professor computer science software (known for inherent professor computer science error). Every effort was made to assure accuracy of professor computer science. Any obvious errors or omissions should be clarified with the author of the document. Pre-op Diagnosis: Abnormal uterine bleeding
[2021-02-14] MEDS: fentaNYL 50 mcg/mL INJ 2mL IVP (14:05)
--- NOTE | 2021-02-14 14:16 | SUR.PHASEI ---
PT AWAKE ALERT TAKING ICE CHIPS BILAT LUNGS CLEAR, VSS MONITOR IS SR NO ECTOPY, JUAREZ TO DD WITH YELLOW URINE TO TUBING AND BAG, STATLOCK TO RT THIGH. PT HAS 3 SITES TO ABD D/I VAGINAL PACKING
--- NOTE | 2021-02-14 15:18 | PC.NURSE ---
Call to respiratory requesting for IS teaching.
[2021-02-14] MEDS: HYDROmorphone 1 mg/mL INJ 1 mL IVP ×2 (15:23→23:36)
--- NOTE | 2021-02-14 15:23 | PC.NURSE ---
Personal belongings to be sent home with patient at discharge.
--- NOTE | 2021-02-14 15:45 | PC.NURSE ---
[place] with respiratory here at bedside with IS teaching
[2021-02-14] MEDS: dextrose 5%-lactated ringers 1,000 ML 125 ML IV (17:15)
[2021-02-14] MEDS: docusate sodium 100 mg Capsule PO (17:15)
[2021-02-14] MEDS: HYDROcodone-acetaminophen 5-325 mg Tablet PO (18:18)
--- NOTE | 2021-02-15 02:00 | PC.NURSE ---
Reyes and vaginal packing out per Dr. Greco's orders at this time. Orders received for 2 post void residuals less than 10% total output.
[2021-02-15] MEDS: HYDROcodone-acetaminophen 5-325 mg Tablet PO (04:40)
[2021-02-15 05:14] LABS: Hematocrit 31.8 % (37.0-47.0); Hemoglobin 9.8 g/dL (11.5-15.3); Mean Corpuscular HGB Conc 30.8 g/dL (30.0-36.0); Mean Corpuscular Hemoglobin 26.7 pg (28.0-34.0); Mean Corpuscular Volume 86.6 fL (81-99); Mean Platelet Volume 10.3 fL (7.4-10.4); Platelet Count 242 10^3/cmm (130-400); Red Blood Count 3.67 10^6/uL (4.1-5.3); Red Cell Distribution Width 19.9 % (12.1-15.1)
[2021-02-15] MEDS: duloxetine 60 mg Capsule PO (05:42)
--- NOTE | 2021-02-15 06:01 | ANE.PACU2 ---
Inpatient post-anesthesia follow up: Airway intact: Yes Vital signs: Temperature 97.9 F Pulse Rate 63 Respiratory Rate 18 Blood Pressure 114/71 Pulse Oximetry 97 Oxygen Delivery Me thod Room Air Oxygen Flow Rate 2 Fraction of Inspir ed Oxygen Hydration adequate: Yes Nausea and vomiting: No Pain level: 2 Mental status: Baseline
--- NOTE | 2021-02-15 08:14 | PC.NURSE ---
Attempted to bladder scan patient but battery was on bladder scanner. Changed battery, but that battery was also . Unable to bladder scan patient at this time.
[2021-02-15 10:19] VITALS: BP 105/68; PULSE 71; RESP 15; TEMP 36.7
--- NOTE | 2021-02-15 10:53 | P.DS_ITS ---
Discharge Providers Date of Admission: 02/14/21 13:44 Date of Discharge: February 15, 2021 Attending Provider at Admission: Papito Lundberg MD Attending Provider at Discharge: Papito Lundberg MD Primary Care Provider: Nabor Nicholson MD - PRE-DELIVERY DIAGNOSIS: 35-year-old 1 para 1-0-0-1 Abnormal uterine bleeding Multiple medical problems including hypertension, history of congestive cardiac failure, possible lupus, etc. POST-DELIVERY DIAGNOSIS: Status post laparoscopic-assisted vaginal hysterectomy and bilateral salpingectomy Hypokalemia status post treatment Stable medical problems PROCEDURE: Laparoscopic-assisted vaginal hysterectomy, bilateral salpingectomy and cystoscopy on 02/14/2021 ANESTHESIA: General endotracheal tube anesthesia Physician: Papito Greco FACOG Indication for surgery: Ms. Reid is a 35-year-old 1 para 1-0-0-1 with a history of multiple medical problems and history of abnormal uterine bleeding that did not respond well to Nexplanon. She desired surgical intervention and hysterectomy and presented on 02/14/2021 for surgery. She denied any new changes on day of admission Hospital course: She underwent an uncomplicated laparoscopic-assisted vaginal hysterectomy and bilateral salpingectomy on 02/14/2021. She did well on postoperative day 0 and was ambulating well, tolerating clear liquid diet. Pain was well-controlled with by mouth and IV pain medication. She denied nausea, vomiting, fever, chills, shortness of breath, leg pain. She had minimal vaginal bleeding. Reyes catheter was kept overnight and she had adequate urine output. On postoperative day #1 she continued to do well with stable vital signs and stable hemoglobin at 9.8. Reyes catheter was removed and patient was able to void with minimal residual noted on bladder scan. She ambulated well started passing flatus and then tolerated a regular diet. She was discharged home on postoperative day #1 in a stable condition. Warning signs for wound infection, cuff infection, DVT/PE were reviewed with her. Post surgical activity restrictions were also reviewed with her at all her questions were answered to her satisfaction. She was discharged home on iron tablets for anemia and potassium for hypokalemia. This documentation was created by [email or web address] director global market research software (known for inherent director global market research error). Every effort was made to assure accuracy of director global market research. Any obvious errors or omissions should be clarified with the author of the document. Reason for Visit Reason for Visit: abnormal uterine bleeding Physical Exam Urinary Catheter Management^: F: Cath Placed During This Visit: yes Urinary Catheter Date of Insertion: 02/14/21 Urinary Catheter Time of Insertion: 11:25 Discharge Data Data Completed and Pending: Pending at discharge Category Date Time Status ES surgery / GI i mages Routine Exams 02/14/21 09:40 Taken Urine Culture [facility] 02/14/21 11:28 Received Pathology: Surgic al [PTH] Routine Pth 02/14/21 13:14 Received Labs from last 24 hours 02/15/21 02/14/21 04:43 08:20 WBC 7.0 RBC 3.67 L Hgb 9.8 L Hct 31.8 L MCV 86.6 MCH 26.7 L MCHC 30.8 RDW 19.9 H Plt Count 242 MPV 10.3 Blood Type A Positive Rho(D) Type Positive / 4+ Antibody Screen Negative Vitals: Last Vital Signs Temp 98.1 F 02/15/21 10:19 Pulse 71 02/15/21 10:19 Resp 15 02/15/21 10:19 BP 105/68 02/15/21 10:19 Pulse Ox 97 02/14/21 22:32 Discharge Plan Discharge Patient Disposition: Home Condition: Stable Prescriptions: New hydrocodone-acetaminophen 5-325 mg tablet 1 tab PO Q6H Qty: 25 RF: 0 tramadol 50 mg tablet 50 mg PO BID Qty: 30 RF: 0 ferrous sulfate 325 mg (65 mg iron) tablet 325 mg PO BID Qty: 30 RF: 0 docusate sodium 100 mg Capsule 100 mg PO BID PRN (Reason: constipation) Qty: 30 RF: 0 Continued cholecalciferol (vitamin D3) 50 mcg (2,000 unit) capsule 50 mcg PO DAILY RF: 0 spironolactone 25 mg tablet 100 mg PO BID RF: 0 tramadol 50 mg tablet 50 mg PO Q6H PRN (Reason: Pain) RF: 0 sulfasalazine 500 mg tablet 1,500 mg PO BID RF: 0 omeprazole 20 mg capsule,delayed release(DR/EC) 20 mg PO DAILY RF: 0 levothyroxine 75 mcg capsule 75 mcg PO DAILY RF: 0 sumatriptan succinate [Imitrex] 100 mg tablet 100 mg PO DIRECTED PRN (Reason: Headache) RF: 0 aspirin [Adult Low Dose Aspirin] 81 mg tablet,delayed release (DR/EC) 81 mg PO DAILY RF: 0 cetirizine 10 mg capsule 10 mg PO DAILY RF: 0 melatonin 10 mg capsule 15 mg PO BEDTIME PRN (Reason: Sleep) RF: 0 alprazolam [Xanax] 0.25 mg tablet 0.25 mg PO BID PRN (Reason: unknown) RF: 0 indomethacin 50 mg capsule 50 mg PO PRN PRN (Reason: unknown) RF: 0 duloxetine [Cymbalta] 30 mg capsule,delayed release(DR/EC) 60 mg PO BID RF: 0 folic acid 400 mcg tablet 1 mg PO DAILY RF: 0 carisoprodol [Soma] 350 mg tablet 350 mg PO TID PRN (Reason: mod pain) RF: 0 elderberry fruit 200 mg capsule PO DAILY RF: 0 budesonide-formoterol [Symbicort] 80-4.5 mcg/actuation HFA aerosol inhaler 2 puff inhalation BID 30 Days Qty: 10.2 RF: 3 albuterol sulfate 90 mcg/actuation HFA aerosol inhaler 2 puff inhalation Q6H PRN (Reason: shortness of breath or wheezing) 30 Days Qty: 8.5 RF: 3 metoprolol succinate 25 mg tablet extended release 24 hr See Rx Instructions PO DIRECTED RF: 0 metolazone 2.5 mg tablet 2.5 mg PO BID PRN (Reason: Edema) Qty: 60 RF: 6 furosemide 40 mg tablet 40 mg PO BID PRN (Reason: weight gain) Qty: 180 RF: 3 digoxin 125 mcg (0.125 mg) tablet 125 mcg PO DAILY 90 Days Qty: 90 RF: 3 pilocarpine HCl 5 mg tablet 5 mg PO TID PRN (Reason: unknown) RF: 0 hydroxychloroquine 200 mg tablet 200 mg PO BID RF: 0 Women's Multivitamin Gummies 1 tab PO DAILY RF: 0 Discharge Orders: Discharge Order (Routine); Ordered 02/15/21 Ordered By: Papito Lundberg Referrals: Papito Lundberg MD [Physician] - 02/26/21 9:15 am (Your 2 week post-op appointment is scheduled for 02/26 @ 09:15 Your 6 week post-op appointment is scheduled for 03/26 @ 09:00) Patient Instructions: Laparoscopically Assisted Vaginal Hysterectomy (DC), OB Discharge Report, OB Food/Drug Interaction Guide, Opioid Safety Activity Restrictions/Additional Instructions: Pelvic rest for 6 weeks, no heavy lifting for 6 weeks Discharge Attestations Time Spent in Discharge Care*: greater than 30 min Quality Metrics Clinical Quality Measures During this hospital stay, did patient experience: None Coding Level of Care Code Acute Chg FW DC note
== END 2021-02-15 11:19 | disposition home or self-care (01) ==
LOC: OBGYN 14:07
PROVIDERS: Anesthesiology; Admitting Provider Obstetrics & Gynecology; PCP Family Medicine; Visit Provider Obstetrics & Gynecology
PROC: 0UT9FZZ Resection of Uterus, Via Natural or Artificial Opening With Percutaneous Endoscopic Assistance (ICD-10-PCS; CPT 58554; principal; 2021-02-14 09:40)
PROC: 0TJB8ZZ Inspection of Bladder, Via Natural or Artificial Opening Endoscopic (ICD-10-PCS; CPT 52000; 2021-02-14 09:40)
DX: N93.9 Abnormal uterine and vaginal bleeding, unspecified (principal); J45.909 Unspecified asthma, uncomplicated; I11.0 Hypertensive heart disease with heart failure; I50.9 Heart failure, unspecified; K21.9 Gastro-esophageal reflux disease without esophagitis; M79.7 Fibromyalgia; F41.9 Anxiety disorder, unspecified; F32.9 Major depressive disorder, single episode, unspecified; E03.9 Hypothyroidism, unspecified; M35.00 Sjogren syndrome, unspecified
CPT/HCPCS: 58554; 36415; 51798; 80053; 81025; 84703; 85025; 85027; 86850; 86900; 87086; 88307; G0378; J0330; J0690; J1100; J1170; J1200; J2405; J2704; J3010; J3480; J3490; J7030

== ENCOUNTER → 2021-06-11 15:27 | Outpatient (BNVA) | payer OTHER, SELFPAY | PROVIDERS: PCP Family Medicine; Visit Provider Obstetrics & Gynecology | DX: R39.9 Unspecified symptoms and signs involving the genitourinary system (principal) | CPT/HCPCS: 81000; 87086 ==

== ENCOUNTER → 2021-07-04 15:30 | Outpatient (BNVA) | payer OTHER, SELFPAY | PROVIDERS: PCP Family Medicine; Visit Provider Obstetrics & Gynecology | DX: Z11.3 Encounter for screening for infections with a predominantly sexual mode of transmission (principal) | CPT/HCPCS: 87491; 87591 ==

== ENCOUNTER → 2021-07-11 13:42 | Outpatient (BNVA) | payer OTHER, SELFPAY | PROVIDERS: PCP Family Medicine; Visit Provider Internal Medicine Cardiovascular Disease | DX: I47.1 Supraventricular tachycardia (principal) | CPT/HCPCS: 80048; 80162; 85025 ==

== ENCOUNTER 2022-01-31 09:17 | Outpatient (CLI) | payer OTHER, SELFPAY ==
--- NOTE | 2022-01-31 09:27 | MM_ITS ---
WS: [id number] VIEWS: MLO and CC views both breasts. 3D digital tomosynthesis is also included in this exam. Comparison made with prior exam of 01/23/2021. Findings: There was no sign of mass, architectural distortion or suspicious calcification in either breast. He terogeneously dense MM/[place] [id number] Impression: BI-RADS: 2-Benign FOLLOW-UP: 1 Year Follow-up This mammogram was also analyzed by the Computer Aided Detection System R2 Imag e Car Manager.
== END 2022-01-31 09:18 | disposition home or self-care (01) ==
PROVIDERS: Visit Provider Obstetrics & Gynecology
DX: Z12.31 Encounter for screening mammogram for malignant neoplasm of breast (principal)
CPT/HCPCS: 77063; 77067

== ENCOUNTER → 2022-07-15 09:48 | Outpatient (BNVA) | payer OTHER, BC, SELFPAY | PROVIDERS: Visit Provider Obstetrics & Gynecology | DX: N89.8 Other specified noninflammatory disorders of vagina (principal) | CPT/HCPCS: 87491; 87591; 87661 ==

== ENCOUNTER → 2022-07-24 14:13 | Outpatient (BNVA) | payer OTHER, BC, SELFPAY | PROVIDERS: Visit Provider Nurse Practitioner Women's Health | DX: N89.8 Other specified noninflammatory disorders of vagina (principal); N90.89 Other specified noninflammatory disorders of vulva and perineum; Z20.2 Contact with and (suspected) exposure to infections with a predominantly sexual mode of transmission | CPT/HCPCS: 86592; 86803; 87340; 87491; 87529; 87591; 87661; 87806; 88305 ==

== ENCOUNTER → 2022-07-25 14:47 | Outpatient (BNVA) | payer OTHER, BC, SELFPAY | PROVIDERS: Visit Provider Nurse Practitioner Women's Health | DX: N90.89 Other specified noninflammatory disorders of vulva and perineum (principal) | CPT/HCPCS: 87070; 87205 ==

== ENCOUNTER 2022-10-14 09:31 | Outpatient (CLI) | payer BC, SELFPAY ==
--- NOTE | 2022-10-14 09:49 | US_ITS ---
WS: [id number] Right breast ultrasound, 10/14/2022 Clinical Data: R92.8 - Other abnormal and inconclusive findings on diagn... Comparison: None. Findings: The right breast was imaged at the site of the palpable nodule, 5 cm from the nipple at 2:00. Only garza bcutaneous tissue could be seen. There is a subcutaneous cyst 7 cm from the nipple which measured 0.1 4 x 0.18 x 0.26 cm. US/US breast RT limited* [id number] Impression: 1. Negative for right breast mass 2. Subcutaneous cyst 7 cm from the nipple at the 2:00 position 3. Return to annual screening mammograms. BIRADS: 2-Benign FOLLOW UP: See Report
--- NOTE | 2022-10-14 09:49 | MM_ITS ---
WS: [id number] Bilateral diagnostic 3D tomosynthesis digital mammogram, 10/14/2022 Clinical Data: N64.52 - Nipple discharge Comparison: 01/31/2022, 01/23/2021 Findings: The breast parenchymal tissue is fibroglandular. No spiculated masses or clustered calcifications are seen. There are mole markers on both breasts. There are lymph nodes in both axilla. The right breast shows no chest wall masses. MM/[place] [id number] Impression: 1. Negative bilateral mammograms unchanged. 2. Recommend right breast ultrasound. BIRADS: 2-Benign FOLLOW UP: See Report The CAD fact checker was used.
== END 2022-10-14 09:32 | disposition home or self-care (01) ==
PROVIDERS: PCP Family Medicine; Visit Provider Nurse Practitioner Women's Health
DX: N64.52 Nipple discharge (principal); R92.8 Other abnormal and inconclusive findings on diagnostic imaging of breast; N60.01 Solitary cyst of right breast
CPT/HCPCS: 76642; 77062; G0279

== ENCOUNTER → 2022-11-24 14:12 | Outpatient (BNVA) | payer BC, SELFPAY | PROVIDERS: PCP Family Medicine; Visit Provider Family Medicine | DX: E03.9 Hypothyroidism, unspecified (principal); J32.9 Chronic sinusitis, unspecified | CPT/HCPCS: 84443 ==

== ENCOUNTER 2022-12-31 07:04 | Outpatient (CLI) | payer BC, MEDICAID, SELFPAY ==
--- NOTE | 2022-12-31 07:15 | US_ITS ---
WS: [id number] EXAMINATION: US transvaginal [id number] HISTORY: screening ORDER DATE: 12/31/2022 7:13 AM COMPARISON: 01/29/2021 TECHNIQUE: Transvaginal pelvic scanning performed. Duplex ultrasound was obtained including color flow and spec tral analysis. Transvaginal scanning needed to further assess the adnexa. FINDINGS: Prior hysterectomy Right ovary completely replaced by a large sonolucency with a thin septation which measures 6.0 cm x 4.0 cm x 4.3 cm. Left ovary is not identified. Doppler evaluation showed normal flow at the margin of the right ovarian cystic lesion. No free fluid was noted in the cul-de-sac. Limited images of the bladder are unremarkable. US/US transvaginal [id number] IMPRESSION: Left ovarian cystic focus has significantly increased in size from the previous scan at which time it measured 27 x 14 mm in size from 01/29/2021.
== END 2022-12-31 07:05 | disposition home or self-care (01) ==
LOC: RAD 07:07
PROVIDERS: PCP Family Medicine; Visit Provider Family Medicine
DX: M35.1 Other overlap syndromes (principal)
CPT/HCPCS: 76830

== ENCOUNTER 2023-01-28 07:18 | Outpatient (CLI) | payer BC, MEDICAID, SELFPAY ==
[2023-01-28 07:33] VITALS: PULSE 80; RESP 18; O2SAT 99
[2023-01-28] MEDS: albuterol 2.5 mg/3 mL Neb INHALATION (07:33)
[2023-01-28 07:38] VITALS: PULSE 83
== END 2023-01-28 07:19 | disposition home or self-care (01) ==
PROVIDERS: PCP Family Medicine; Visit Provider Family Medicine
DX: M35.1 Other overlap syndromes (principal)
CPT/HCPCS: 94060; 94726; 94729; J7613

== ENCOUNTER → 2023-03-02 11:01 | Outpatient (BNVA) | payer BC, MEDICAID, SELFPAY | PROVIDERS: PCP Family Medicine; Visit Provider Obstetrics & Gynecology | DX: N83.209 Unspecified ovarian cyst, unspecified side (principal) | CPT/HCPCS: 76830 ==